=== PATIENT | female | born 1960 | race Caucasian/White ===

== ENCOUNTER 2019-12-09 08:22 | Outpatient (CLI) | payer OTHER, SELFPAY ==
[2019-12-09 10:15] LABS: HIV 1/2 Ab P24 Ag Result Negative (Negative)
--- NOTE | 2019-12-09 10:19 | ECG_ITS ---
Measurements Intervals [place] Rate: 79 P: 42 CT: 149 QRS: 24 QRSD: 90 T: 29 QT: 363 QTc: 416 Interpretive Statements SINUS RHYTHM NORMAL ECG Electronically Signed On 12-09-2019 10:30:30 CDT by Josep Andrews D.O.
[2019-12-09 10:33] LABS: Vitamin D 25 Hydroxy 35.4 ng/mL
[2019-12-09 10:48] LABS: Hepatitis B Surface Antigen Negative (Negative)
[2019-12-09 10:53] LABS: HAV RESULT Negative (Negative); Hepatitis B Core IgM Result Negative (Negative)
[2019-12-09 11:05] LABS: Hepatitis C Virus Antibody Negative (Negative)
== END 2019-12-09 08:23 | disposition home or self-care (01) ==
PROVIDERS: PCP Family Medicine Sports Medicine; Visit Provider Family Medicine Sports Medicine
DX: M54.5 Low back pain (principal); Z01.812 Encounter for preprocedural laboratory examination
CPT/HCPCS: 36415; 80074; 82306; 86703; 93005; G0432